=== PATIENT | male | born 1990 | race Two or more races ===

== ENCOUNTER 2021-01-01 22:51 | Emergency (ER) | payer BC, OTHER ==
[~2021-01-01] VITALS: Ht 177.8 cm; Wt 99.8 kg
[2021-01-01] MEDS ORDERED: ONDANSETRON HCL 4 MG/2 ML VIAL IV ONE (23:15)
[2021-01-01] MEDS ORDERED: TETANUS-DIPTH-ACEL PERTUSSIS 0.5ML SYR Tdap IM ONE (23:15)
[2021-01-01] MEDS ORDERED: SODIUM CHLORIDE 0.9% 1,000 ML IV ONE (23:15)
[2021-01-01] MEDS ORDERED: HYDROmorphone HCL 2 MG/ML VL IV ONE (23:15)
[2021-01-01 23:17] LABS: Basophils # (auto) 0 10 ^3/uL (0-0.2); Basophils % (auto) 0.2 % (0.0-2.0); Eosinophils # (auto) 0.2 10 ^3/uL (0-0.8); Eosinophils % (auto) 0.9 % (0.0-7.0); Hematocrit 39.7 % (41.0-53.0); Hemoglobin 14.1 g/dL (13.5-17.5); Lymphocytes # (auto) 2.1 10 ^3/uL (0.4-5.4); Lymphocytes % (auto) 10.9 % (10.0-50.0); Mean Corpuscular Hemoglobin 30.2 pg (28.0-32.0); Mean Corpuscular Hgb Conc. 35.7 g/dL (32.0-36.0); Mean Corpuscular Volume 84.7 fL (80.0-100.0); Monocytes # (auto) 1.4 10 ^3/uL (0-1.3); Monocytes % (auto) 7.3 % (0.0-12.0); Neutrophils # (auto) 15.3 10 ^3/uL (1.6-8.6); Neutrophils % (auto) 80.7 % (37.0-80.0); Nucleated Red Blood Cells % 0.2 %; Red Blood Cells 4.68 10^6/uL (4.5-5.90); Red Cell Distribution Width 12.5 % (11.8-14.3)
[2021-01-01] MEDS ORDERED: IOHEXOL 300 MG/ML 100ML BOTTLE IJ ONE (23:21)
[2021-01-01 23:33] LABS: INR 0.95 (0.9-1.15); Partial Thromboplastin Time 20.6 sec (23.0-31.2)
[2021-01-02 00:01] LABS: Albumin 3.6 g/dL (3.4-5.0); Calcium 8.3 mg/dL (8.5-10.1); Potassium 3.1 mmol/L (3.5-5.1)
[2021-01-02 00:04] LABS: BUN/Creatinine Ratio 12.2; Bilirubin, Total 0.5 mg/dL (0.2-1.0); Total Protein 7.3 g/dL (6.4-8.2)
[2021-01-02] MEDS ORDERED: HYDROmorphone HCL 2 MG/ML VL IV ONE ×2 (01:30→05:15)
[2021-01-02] MEDS ORDERED: SODIUM CHLORIDE 0.9% 1,000 ML IV ONE (01:30)
[2021-01-02] MEDS ORDERED: LIDOCAINE 2%HCL (LOCAL ANESTH.) INJ 10ml MDV IJ ONE (01:45)
[2021-01-02] MEDS ORDERED: LIDOCAINE 1% HCL (LOCAL ANESTH.) INJ 20ML MDV ONE (02:21)
[2021-01-02 02:49] LABS: Hematocrit 37.4 % (41.0-53.0)
[2021-01-02] MEDS ORDERED: ONDANSETRON HCL 4 MG/2 ML VIAL IV ONE (08:30)
[2021-01-02] MEDS ORDERED: MORPHINE SULFATE 4 MG/ML SYR/VIAL IV ONE (08:30)
[2021-01-02 08:55] VITALS: BP 107/59
== END 2021-01-02 09:38 ==
LOC: EDBD 22:51 → ER 22:51
DX: S32.89XA Fracture of other parts of pelvis, initial encounter for closed fracture (principal); S32.19XA Other fracture of sacrum, initial encounter for closed fracture; S63.105A Unspecified dislocation of left thumb, initial encounter; S70.01XA Contusion of right hip, initial encounter; S60.222A Contusion of left hand, initial encounter; S00.531A Contusion of lip, initial encounter; S80.211A Abrasion, right knee, initial encounter; R00.0 Tachycardia, unspecified; Z20.822 Contact with and (suspected) exposure to COVID-19; V49.59XA Passenger injured in collision with other motor vehicles in traffic accident, initial encounter; Y93.89 Activity, other specified; Y92.488 Other paved roadways as the place of occurrence of the external cause; Y99.8 Other external cause status
CPT/HCPCS: 26755; 36415; 70450; 71260; 72125; 73070; 73130; 73560; 74177; 80053; 85014; 85018; 85025; 85610; 85730; 86850; 86900; 86901; 87426; 90471; 90715; 93005; 96361; 96374; 96375; 96376; 99285; J1170; J2001; J2270; J2405; J7030; Q9967